=== PATIENT | female | born 1995 | race Caucasian/White ===

== ENCOUNTER 2017-04-02 22:16 | Emergency (ER) | payer OTHER ==
[~2017-04-02 22:16] MED LIST: ACETAMINOP160 MG/5 PO; CLEOCIN150 MG/CA1 PO; FLEXERIL5 MG PO; LORTAB ELIXIR480 ML PO; NORCO 5/3251 TA1 PO; OVRAL PO; PERCOLONE5 MG PO; QUESTRAN PACK4 G/PKT PO; ROXICET 5/325500 ML PO; YASMIN 28 TABLE1 TAB; ZITHROMAX250MG Z-PAK; ZOFRAN ODT4 MG/UDTAB PO; ZOVIA PO; [UNRECOGNIZED DRUG - OTHER] PO
[2017-04-02] MEDS ORDERED: PRENATAL-U CAPS1 CAP PO (22:58)
== END 2017-04-03 00:34 ==
LOC: EDMED 22:16
DX: S46.811A Strain of other muscles, fascia and tendons at shoulder and upper arm level, right arm, initial encounter (principal); Z87.891 Personal history of nicotine dependence; V89.2XXA Person injured in unspecified motor-vehicle accident, traffic, initial encounter; Y92.410 Unspecified street and highway as the place of occurrence of the external cause